=== PATIENT | female | born 1990 | race Caucasian/White ===

== ENCOUNTER → 2020-03-29 | Outpatient (CLI) | payer MEDICAID, OTHER ==
[~2020-03-29] MED LIST: IBUP200C8 PO; NORE-205 PO
[2020-03-29 12:28] LABS: BASOPHILS # (AUTO) 0.07 x10^3/uL (0-0.1); BASOPHILS % (AUTO) 1 % (0-1); EOSINOPHILS # (AUTO) 0.19 x10^3/uL (0-0.4); EOSINOPHILS % (AUTO) 2 % (1-7); LYMPHOCYTES # (AUTO) 2.72 x10^3/uL (1-3.4); LYMPHOCYTES % (AUTO) 35 % (22-44); MD NO; MEAN CORPUSCULAR HEMOGLOBIN 30.2 pg (27.0-34.8); MEAN CORPUSCULAR HGB CONC 33.7 g/dL (32.4-35.8); MEAN CORPUSCULAR VOLUME 89.8 fL (80-100); MONOCYTES # (AUTO) 0.45 x10^3/uL (0.2-0.8); MONOCYTES % (AUTO) 6 % (2-9); NEUTROPHILS # (AUTO) 4.34 x10^3/uL (1.8-6.8); NEUTROPHILS % (AUTO) 56 % (42-75); PLATELET COUNT 275 x10^3/uL (130-400); RED BLOOD COUNT 4.55 x10^6/uL (3.82-5.3); RED CELL DISTRIBUTION WIDTH 11.8 % (9.6-15.2)
[2020-03-29 12:38] LABS: ANION GAP 8 mmol/L (5-15); CALCIUM 9.2 mg/dL (8.5-10.1); CHLORIDE 108 mmol/L (98-107); MICROSCOPIC NOT IND
[2020-03-29 12:43] LABS: ALANINE AMINOTRANSFERASE 101 U/L (12-78); ALKALINE PHOSPHATASE 59 U/L (45-117); BILIRUBIN,TOTAL 0.4 mg/dL (0.2-1.0); CREATININE 0.71 mg/dL (0.55-1.02); TOTAL PROTEIN 7.7 g/dL (6.4-8.2)
== END | disposition home or self-care (01) ==
LOC: STAR 11:03 → MERGE 12:00
PROVIDERS: ATTEND Obstetrics & Gynecology Gynecology
DX: Z01.812 Encounter for preprocedural laboratory examination (principal); Z20.828 Contact with and (suspected) exposure to other viral communicable diseases; D06.9 Carcinoma in situ of cervix, unspecified
CPT/HCPCS: 36415; 80053; 81003; 84703; 85025; 87635

== ENCOUNTER 2020-04-02 10:44 | Day surgery (SDC) | payer MEDICAID, OTHER ==
[~2020-04-02] VITALS: Ht 172.7 cm; Wt 73.0 kg
[2020-04-02] MEDS ORDERED: CHLORHEXIDINE 15 ML UDC MM STA (10:59)
[2020-04-02] MEDS ORDERED: LACTATED RINGERS 1,000 ML IV SCH (10:59)
[2020-04-02 11:26] LABS: HCG UR SG 1.022 (1.003-1.030)
[2020-04-02] MEDS ORDERED: MIDAZOLAM 1 MG/ML, 2ML ONE (11:58)
[2020-04-02] MEDS ORDERED: DEXAMETHASONE 4 MG/ML, 1ML ONE (12:06)
[2020-04-02] MEDS ORDERED: PROPOFOL 10 MG/ML, 20ML ONE (12:06)
[2020-04-02] MEDS ORDERED: KETOROLAC 30 MG/1 ML ONE (12:06)
[2020-04-02] MEDS ORDERED: ONDANSETRON 2MG/ML, 2ML ONE (12:06)
[2020-04-02] MEDS ORDERED: LIDOCAINE/PF 1%-EPI 1:200K, 30 ML ONE (12:18)
[2020-04-02] MEDS ORDERED: HYDROmorphone 1 MG/ML, 1ML INJ IVPush PRN (12:30)
[2020-04-02] MEDS ORDERED: FENTANYL PF 100 MCG/2ML IV PRN (12:30)
[2020-04-02] MEDS ORDERED: ONDANSETRON 2MG/ML, 2ML IVPush PRN (12:30)
[2020-04-02] MEDS ORDERED: ACETAMINOPHEN 325 MG TABLET PO PRN (12:30)
[2020-04-02] MEDS ORDERED: OXYcodone 5 MG/5 ML ORAL.SOL UDC PO PRN (12:30)
[2020-04-02] MEDS ORDERED: ACETAMINOPHEN 650 MG/20.3 ML UDC ONE (13:06)
[2020-04-02] MEDS ORDERED: OXYcodone 5 MG/5 ML ORAL.SOL UDC ONE (13:31)
[2020-04-02] MEDS ORDERED: FENTANYL PF 100 MCG/2ML ONE (13:31)
== END 2020-04-02 14:20 | disposition home or self-care (01) ==
LOC: OUT 10:44
PROVIDERS: ATTEND Obstetrics & Gynecology Gynecology
DX: R87.613 High grade squamous intraepithelial lesion on cytologic smear of cervix (HGSIL) (principal); Z72.89 Other problems related to lifestyle; Z87.891 Personal history of nicotine dependence
CPT/HCPCS: 57520; 81025; 88305; 88307; J1100; J1885; J2250; J2405; J2704; J3490